=== PATIENT | female | born 1945 | race Caucasian/White ===

== ENCOUNTER 2018-01-03 20:49 | Observation (INO) | payer MEDICARE ==
[2018-01-03 20:50] VITALS: O2SAT 93
[2018-01-03] MEDS ORDERED: IODIXANOL 320 MG/ML 10 ML VIAL (for Rad CT) IVCONTRAST ONE (20:50)
[2018-01-03 20:52] VITALS: BP 217/124; PULSE 97; RESP 28; TEMP 98.9; O2SAT 79
[2018-01-03 21:04] VITALS: BP 215/98
[2018-01-03] MEDS ORDERED: SODIUM CHLORIDE 0.9% FLUSH 10 ML FLUSH IVF PRN ×2 (21:15→21:45)
[2018-01-03] MEDS ORDERED: ASPIRIN 81 MG CHEW TAB PO ONE (21:15)
[2018-01-03] MEDS: NITROGLYCERIN 0.4 MG SL 25 TABS/BTL SL SCH ×3 (21:18→21:37)
[2018-01-03 21:21] VITALS: RESP 25; O2SAT 98
[2018-01-03] MEDS ORDERED: ONDANSETRON HCL 4 MG/2 ML VIAL IV PUSH ONE (21:30)
[2018-01-03 21:40] LABS: AUTOMATED NEUTROPHIL # 7.9 TH/MM3 (1.8-7.7); BASOPHIL # 0.1 TH/MM3 (0-0.2); EOSINOPHIL # 0.2 TH/MM3 (0-0.4); EOSINOPHIL % 1.9 % (0.0-4.0); HEMATOCRIT 49.1 % (35.0-46.0); HEMOGLOBIN 16.5 GM/DL (11.6-15.3); LYMPH % 21.9 % (9.0-44.0); LYMPHOCYTE # 2.6 TH/MM3 (1.0-4.8); MEAN CELL VOLUME 88.8 FL (80.0-100.0); MEAN CORPUSCULAR HEMOGLOBIN 29.9 PG (27.0-34.0); MEAN CORPUSCULAR HGB CONC 33.7 % (32.0-36.0); MEAN PLATELET VOLUME 9.2 FL (7.0-11.0); MONO % 9.3 % (0.0-8.0); MONOCYTE # 1.1 TH/MM3 (0-0.9); NEUT % 65.9 % (16.0-70.0); PLATELET COUNT 295 TH/MM3 (150-450); RED BLOOD COUNT 5.53 MIL/MM3 (4.00-5.30); RED CELL DISTRIBUTION WIDTH 13.7 % (11.6-17.2)
[2018-01-03] MEDS ORDERED: NITROGLYCERIN 2% OINT 1 GM PACKET TOPICAL ONE (21:45)
--- NOTE | 2018-01-03 21:54 | RADRPT ---
EXAM DATE/TIME: 01/03/2018 21:27 [facility] COMPARISON: No previous studies available for comparison. INDICATIONS : Chest pain. MEDICAL HISTORY : None. SURGICAL HISTORY : Right upper lung lobectomy. ENCOUNTER: Initial ACUITY: 3 days PAIN SCORE: 4/10 LOCATION: chest FINDINGS: There are no prior studies for comparison. There is pleural thickening in the right apex. There is ev idence of previous right thoracic surgery with surgical clips in the right hemithorax. There is eithe r pleural thickening or parenchymal changes in the right lung base. There is some atelectasis in the left lung base. Left lung is otherwise clear. The heart size is within normal limits. The bony struct ures are grossly intact. CONCLUSION: 1. Evidence of previous surgery to the left upper lung with pleural thickening in the apex. 2. Either pleural thickening or parenchymal changes in the right lung base. 3. Left lower lung atelectasis. Asaf Mireles MD on January 03, 2018 at 21:51 Board Certified Radiologist. This report was verified electronically.
--- NOTE | 2018-01-03 21:57 | PD ---
HPI Chief Complaint: Respiratory Distress Time Seen by Provider: 20:58 Travel History International Travel<30 days: No Contact w/Intl Traveler<30days: No Traveled to known affect area: No History of Present Illness HPI 72-year-old female presents to the emergency department by private transportation in the care of family for evaluation of chest pain and shortness of breath. Patient states she recently arrived from [place] by plane and notes chest pain as well as shortness of breath. Patient has history of COPD with chronic recurrent shortness of breath. Patient uses supplemental oxygen as needed for dyspnea at rest and on exertion. Patient states she also notes some discomfort into her abdomen and denies any lower extremity pain or swelling. Patient has had no recent febrile illness and is currently taking no blood thinning agents. Patient denies any personal history or family history of clotting disorder or connective tissue disorder. Patient does have history of hypertension and dyslipidemia but denies diabetes and no recent tobacco use. Patient states 1 year ago she had an imaging study of the aorta that was found to be normal according to the patient. All of her providers are located in [place]. Patient denies any hemoptysis or productive cough. Patient does complain of nausea. Patient denies any known cardiac disease. PFSH Past Medical History Narrative Medical COPD, hypertension, dyslipidemia; right upper lobectomy, hysterectomy, cholecystectomy; remote tobacco use; nursing notes reviewed Social History Tobacco Use: No Allergies-Medications (Allergen,Severity, Reaction): Coded Allergies: Sulfa (Sulfonamide Antibiotics) (Verified Allergy, Unknown, 01/03/18) ipratropium (Verified Allergy, Unknown, 01/03/18) lisinopril (Verified Allergy, Unknown, 01/03/18) morphine (Verified Allergy, Unknown, 01/03/18) sulfamethoxazole (Verified Allergy, Unknown, 01/03/18) topiramate (Verified Allergy, Unknown, 01/03/18) trimethoprim (Verified Allergy, Unknown, 01/03/18) Reported Meds & Prescriptions Reported Meds & Active Scripts Active Review of Systems Except as stated in HPI: all other systems reviewed are Neg General / Constitutional: No: Fever, Chills HENT: No: Congestion Cardiovascular: Positive: Chest Pain or Discomfort (Discomfort 06/05) Respiratory: Positive: Shortness of Breath, No: Wheezing Gastrointestinal: Positive: Nausea, Abdominal Pain (Discomfort) Genitourinary: No: Flank Pain Musculoskeletal: No: Myalgias, Arthralgias, Cramping, Edema, Pain Skin: No Rash Neurologic: No: Weakness Psychiatric: No: Anxiety Hematologic/Lymphatic: No: Easy Bruising Physical Exam Narrative GENERAL: Well-developed well-nourished female in no apparent distress no respiratory distress; GCS 15 room air O2 saturation 82% patient placed on 4 L/ min nasal cannula with 99% O2 saturation; blood pressure elevated SKIN: Warm and dry. HEAD: Normocephalic. EYES: No scleral icterus. No injection or drainage. NECK: Supple, trachea midline. No JVD or lymphadenopathy. CARDIOVASCULAR: Regular rate and rhythm without murmurs, gallops, or rubs. Bilateral radial pulses 2+ to palpation, bilateral dorsalis pedis pulses 2+ to palpation. RESPIRATORY: Breath sounds equal bilaterally. No accessory muscle use. GASTROINTESTINAL: Abdomen soft, non-tender, nondistended. No palpable pulsatile mass. MUSCULOSKELETAL: No cyanosis, or edema. No pallor or coolness of the limbs, no edema erythema increased warmth of the lower extremities or upper extremities and no Homans sign or posterior calf cording. BACK: Nontender without obvious deformity. No CVA tenderness. Data Data Last Documented VS Vital Signs Date Time Temp Pulse Resp B/P (MAP) Pulse Ox O2 Delivery O2 Flow Rate FiO2 01/03/18 21:21 25 98 Nasal Cannula 3.00 01/03/18 20:55 85 01/03/18 20:52 98.9 Orders Orders Electrocardiogram (01/03/18 21:09) Basic Metabolic Panel (Bmp) (01/03/18 21:09) B-Type Natriuretic Peptide (01/03/18 21:09) Ckmb (Isoenzyme) Profile (01/03/18 21:09) Complete Blood Count With Diff (01/03/18 21:09) D-Dimer (01/03/18 21:09) Magnesium (Mg) (01/03/18 21:09) Prothrombin Time / Inr (Pt) (01/03/18 21:09) Act Partial Throm Time (Ptt) (01/03/18 21:09) Troponin I (01/03/18 21:09) Chest, Single Ap (01/03/18 21:09) Ecg Monitoring (01/03/18 21:09) Bilateral Bp Monitoring (01/03/18 21:09) Iv Access Insert/Monitor (01/03/18 21:09) Oximetry (01/03/18 21:09) Oxygen Administration (01/03/18 21:09) Aspirin Chew (Aspirin Chew) (01/03/18 21:15) Sodium Chloride 0.9% Flush (Ns Flush) (01/03/18 21:15) Nitroglycerin Sl (Nitrostat Sl) (01/03/18 21:15) Lactic Acid (01/03/18 21:09) Ondansetron Inj (Zofran Inj) (01/03/18 21:30) Us Leg Venous Doppler Bilat (01/03/18 ) Electrocardiogram (01/03/18 21:35) Bilateral Bp Monitoring (01/03/18 21:35) Sodium Chloride 0.9% Flush (Ns Flush) (01/03/18 21:45) Ct Pulmonary Angiogram (01/03/18 21:35) Ct Abd/Pel W Iv Contrast(Rout) (01/03/18 ) Nitroglycerin 2% Oint (Nitroglycerin 2% (01/03/18 21:45) CKMB (01/03/18 20:15) CKMB% (01/03/18 20:15) Iodixanol 320 Inj (Rad Ct) (Visipaque 32 (01/03/18 20:50) Sodium Chlorid 0.9% 500 Ml Inj (Ns 500 M (01/03/18 22:45) Albuterol Neb (Albuterol Neb) (01/03/18 22:45) Clonidine (Catapres) (01/03/18 23:30) Albuterol Neb (Albuterol Neb) (01/03/18 23:30) Ceftriaxone Inj (Rocephin Inj) (01/03/18 23:45) Methylprednisolone So Succ Inj (Solumedr (01/04/18 00:00) Admit Order (Ed Use Only) (01/03/18 ) Movement Assembler / Telemetry [id number].[id number] (01/03/18 23:54) Activity Bed Rest (01/03/18 23:54) Notify Dr: Other (01/03/18 23:54) Labs Laboratory Tests Test 01/03/18 20:15 2/7/18 21:20 White Blood Count 12.0 TH/MM3 Red Blood Count 5.53 MIL/MM3 Hemoglobin 16.5 GM/DL Hematocrit 49.1 % Mean Corpuscular Volume 88.8 FL Mean Corpuscular Hemoglobin 29.9 PG Mean Corpuscular Hemoglobin Concent 33.7 % Red Cell Distribution Width 13.7 % Platelet Count 295 TH/MM3 Mean Platelet Volume 9.2 FL Neutrophils (%) (Auto) 65.9 % Lymphocytes (%) (Auto) 21.9 % Monocytes (%) (Auto) 9.3 % Eosinophils (%) (Auto) 1.9 % Basophils (%) (Auto) 1.0 % Neutrophils # (Auto) 7.9 TH/MM3 Lymphocytes # (Auto) 2.6 TH/MM3 Monocytes # (Auto) 1.1 TH/MM3 Eosinophils # (Auto) 0.2 TH/MM3 Basophils # (Auto) 0.1 TH/MM3 CBC Comment DIFF FINAL Differential Comment Prothrombin Time 9.5 SEC Prothromb Time International Ratio 0.9 RATIO Activated Partial Thromboplast Time 27.5 SEC D-Dimer Quantitative (PE/DVT) 0.94 MG/L FEU Blood Urea Nitrogen 28 MG/DL Creatinine 1.60 MG/DL Random Glucose 94 MG/DL Calcium Level 10.6 MG/DL Magnesium Level 2.2 MG/DL Sodium Level 141 MEQ/L Potassium Level 4.0 MEQ/L Chloride Level 106 MEQ/L Carbon Dioxide Level 25.7 MEQ/L Anion Gap 9 MEQ/L Estimat Glomerular Filtration Rate 32 ML/MIN Total Creatine Kinase 173 U/L Creatine Kinase MB 1.8 NG/ML Troponin I LESS THAN 0.02 NG/ML B-Type Natriuretic Peptide 24 PG/ML Lactic Acid Level 1.7 mmol/L [facility] Medical Decision Making Medical Screen Exam Complete: Yes Emergency Medical Condition: Yes Medical Record Reviewed: Yes Interpretation(s) EKG: Normal sinus rhythm rate [address] elevation or injury pattern change noted artifact is present Chest x-ray: No mediastinal widening elevation of right hemidiaphragm and scarring consistent with right upper lobectomy no infiltrate Differential Diagnosis Chest pain, hypoxemia, aortic dissection, aortic aneurysm, PE, ACS, IL, exacerbation COPD, DVT Narrative Course Patient placed on monitor technician with continuous pulse oximetry and supplemental oxygen aspirin administered 162 mg and sublingual nitroglycerin bilateral blood pressure symmetric EKG sinus rhythm with no acute ST elevation injury pattern change noted At 9:50 PM patient complains of cramping sensation in the left calf reports chest pain has diminished significantly after nitroglycerin and O2 saturations 99% on supplemental oxygen nausea denies shortness of breath this time stat CT pulmonary angiogram ordered along with CT abdomen and pelvis to evaluate for PE as well as further evaluation of thoracic and abdominal aorta Physician Communication Physician Communication iscussed with Dr Sims Diagnosis Primary Impression: Chest pain Additional Impressions: Hypoxemia COPD (chronic obstructive pulmonary disease) Admitting Information Admitting Physician Requests: Observation Christina Danielson MD Jan 03, 2018 21:57
[2018-01-03 22:00] LABS: BICARBONATE 25.7 MEQ/L (21.0-32.0); BLOOD UREA NITROGEN 28 MG/DL (7-18); CALCIUM 10.6 MG/DL (8.5-10.1); CHLORIDE 106 MEQ/L (98-107); GLOMERULAR FILTRATION RATE 32 ML/MIN (>89); GLUCOSE,RANDOM 94 MG/DL (74-106); MAGNESIUM 2.2 MG/DL (1.5-2.5); SODIUM (NA) 141 MEQ/L (136-145)
[2018-01-03 22:01] LABS: TROPONIN I LESS THAN 0.02 NG/ML (0.02-0.05)
--- NOTE | 2018-01-03 22:36 | RADRPT ---
EXAM DATE/TIME: 01/03/2018 22:12 [facility] COMPARISON: No previous studies available for comparison. INDICATIONS : Shortness of breath. IV CONTRAST: 50 cc Visipaque (iodixanol) IV ; Cumulative dose for multiple exams. RADIATION DOSE: 26.45 CTDIvol (mGy) ; Combined studies MEDICAL HISTORY : Chronic obstructive pulmonary disease. Hypertension. SURGICAL HISTORY : Cholecystectomy. Hysterectomy.right upper lobectomy ENCOUNTER: Initial ACUITY: 1 day PAIN SCALE: 0/10 LOCATION: chest TECHNIQUE: Volumetric scanning of the chest was performed using a pulmonary embolism protocol MIP images were re constructed. Using automated exposure control and adjustment of the mA and/or kV according to patien t size, radiation dose was kept as low as reasonably achievable to obtain optimal diagnostic quality images. DICOM format image data is available electronically for review and comparison. Follow-up recommendations for detected pulmonary nodules are based at a minimum on nodule size and pa tient risk factors according to Fleischner Society Guidelines. FINDINGS: PULMONARY ARTERIES: No filling defects are seen in the pulmonary arteries through the segmental level. LUNGS: There appears to be evidence of a previous right upper lobectomy. Postsurgical changes with pleural t hickening are noted in the right apex. There is severe bullous emphysema throughout both lung [place]. No acute pulmonary infiltrates. There is some elevation of the right hemidiaphragm. PLEURAE: There is no pleural thickening or pleural effusion. MEDIASTINUM: There is good visualization of the great vessels of the middle mediastinum. No evidence of mediastin al or hilar adenopathy/mass. MUSCULOSKELETAL: Within normal limits for patient age. Bony degenerative changes. MISCELLANEOUS: The visualized upper abdominal organs demonstrate no acute abnormality. Multiple splenic granulomas. CONCLUSION: 1. No evidence of pulmonary embolism. 2. Severe bilateral bullous emphysema. 3. Status post prior right upper lobectomy with postsurgical changes and pleural thickening. 4. No acute pulmonary infiltrates. Asaf Mireles MD on January 03, 2018 at 22:31 Board Certified Radiologist. This report was verified electronically.
--- NOTE | 2018-01-03 22:39 | RADRPT ---
EXAM DATE/TIME: 01/03/2018 22:12 [facility] COMPARISON: No previous studies available for comparison. INDICATIONS : Short of breath. IV CONTRAST: 50 cc Visipaque (iodixanol) IV ; Cumulative dose for multiple exams. ORAL CONTRAST: No oral contrast ingested. RADIATION DOSE: CTDIvol (mGy) ; Combined studies MEDICAL HISTORY : Chronic obstructive pulmonary disease. Hypertension. SURGICAL HISTORY : Cholecystectomy. Hysterectomy.right upper lobectomy ENCOUNTER: Initial ACUITY: 1 day PAIN SCALE: 0/10 LOCATION: abdomen TECHNIQUE: Volumetric scanning of the abdomen and pelvis was performed. Using automated exposure control and ad justment of the mA and/or kV according to patient size, radiation dose was kept as low as reasonably achievable to obtain optimal diagnostic quality images. DICOM format image data is available electro nically for review and comparison. FINDINGS: LOWER LUNGS: Severe bullous emphysema in the lower lung [place]. LIVER: Homogeneous density without lesion. There is no dilation of the biliary tree. No calcified gallston es. SPLEEN: Normal size without lesion. Multiple splenic granulomas. PANCREAS: Within normal limits. KIDNEYS: Normal in size and shape. There is no mass, stone or hydronephrosis. There are 2 benign left renal c ysts. The largest measures 3.8 cm along the lower pole. ADRENAL GLANDS: Within normal limits. VASCULAR: There is no aortic aneurysm. BOWEL/MESENTERY: The stomach, small bowel, and colon demonstrate no acute abnormality. There is no free intraperitone al air or fluid. No inflammatory changes. ABDOMINAL WALL: Within normal limits. RETROPERITONEUM: There is no lymphadenopathy. BLADDER: No wall thickening or mass. REPRODUCTIVE: Within normal limits. INGUINAL: There is no lymphadenopathy or hernia. MUSCULOSKELETAL: Within normal limits for patient age. Primary bony degenerative changes. CONCLUSION: 1. Benign-appearing left renal cysts. 2. Multiple splenic granulomas. 3. No acute pathology. Asaf Mireles MD on January 03, 2018 at 22:34 Board Certified Radiologist. This report was verified electronically.
[2018-01-03] MEDS ORDERED: SODIUM CHLORID 0.9% 500 ML INJ 500 ML IV ONE (22:45)
[2018-01-03] MEDS ORDERED: RESP: ALBUTEROL 2.5 MG/3 ML NEB (SCH) NEB ONE ×2 (22:45→23:30)
[2018-01-03 22:52] LABS: INTERNATIONAL NORMALIZED RATIO 0.9 RATIO; PROTHROMBIN TIME - PATIENT 9.5 SEC (9.8-11.6)
--- NOTE | 2018-01-03 23:07 | RADRPT ---
EXAM DATE/TIME: 01/03/2018 22:22 [facility] COMPARISON: No previous studies available for comparison. INDICATIONS : Shortness of breath. MEDICAL HISTORY : Chronic obstructive pulmonary disease. Hypertension. Dyslipidemia. SURGICAL HISTORY : Hysterectomy.Cholecystectomy. Right upper lobectomy. ENCOUNTER: Initial ACUITY: 1 day PAIN SCORE: 0/10 LOCATION: Bilateral legs. TECHNIQUE: Venous ultrasound of the left and right leg was performed from the inguinal ligament to the proximal calf. Real-time, color Doppler and spectral tracing, compression and augmentation techniques were us ed. FINDINGS: RIGHT LEG: There is normal compressibility of the deep venous system from the inguinal region to the proximal ca lf. No echogenic clot is seen in the lumen of the common femoral, femoral, popliteal, and posterior tibial veins. There is a normal response of the venous system to proximal and distal augmentation an d respiration. LEFT LEG: There is normal compressibility of the deep venous system from the inguinal region to the proximal ca lf. No echogenic clot is seen in the lumen of the common femoral, femoral, popliteal, and posterior tibial veins. There is a normal response of the venous system to proximal and distal augmentation an d respiration. CONCLUSION: No DVT is identified within either lower extremity. Reinaldo Reece MD on January 03, 2018 at 23:05 Board Certified Radiologist. This report was verified electronically.
[2018-01-03 23:20] LABS: D-DIMER 0.94 MG/L FEU (0.00-0.50)
[2018-01-03] MEDS ORDERED: cloNIDine HCL 0.1 MG TAB PO ONE (23:30)
[2018-01-03] MEDS ORDERED: cefTRIAXone INJ 1,000 MG in SODIUM CHLORIDE 0.9% INJ 100 ML IV ONE (23:45)
[2018-01-04] VITALS (10 sets, daily range): BP systolic 123–182; BP diastolic 56–84; PULSE 82–112; RESP 18–20; TEMP 97.1–98.3; O2SAT 93–98
[2018-01-04] MEDS ORDERED: methylPREDNISolone SOD SUCC 125 MG/2 ML VIAL IV PUSH ONE
[2018-01-04] MEDS ORDERED: ONDANSETRON HCL 4 MG/2 ML VIAL IVP PRN (02:30)
[2018-01-04] MEDS ORDERED: cloNIDine HCL 0.1 MG TAB PO PRN (02:30)
[2018-01-04] MEDS ORDERED: SODIUM CHLORIDE 0.9% FLUSH 10 ML FLUSH IV FLUSH PRN (02:30)
[2018-01-04] MEDS ORDERED: RESP: ALBUTEROL 2.5 MG/3 ML NEB (PRN) NEB (02:30)
[2018-01-04] MEDS: RESP: ALBUTEROL 2.5 MG/3 ML NEB (SCH) NEB ×4 (03:05→20:05)
[2018-01-04 04:27] LABS: TROPONIN I LESS THAN 0.02 NG/ML (0.02-0.05)
[2018-01-04] MEDS: methylPREDNISolone SOD SUCC 40 MG/1 ML VIAL IV PUSH SCH ×2 (05:10→11:50)
[2018-01-04] MEDS ORDERED: TRAZ50TA12 PO (05:32)
[2018-01-04] MEDS ORDERED: EXCETAB31 (05:32)
[2018-01-04] MEDS ORDERED: SPIRCAP INH (05:32)
[2018-01-04] MEDS ORDERED: ASPI-516 CHEW (05:32)
[2018-01-04] MEDS ORDERED: GABA600T PO (05:32)
[2018-01-04] MEDS ORDERED: DILT-48 PO (05:32)
[2018-01-04] MEDS ORDERED: REST0.05 EACH EYE (05:32)
[2018-01-04] MEDS ORDERED: LOSA100T PO (05:32)
[2018-01-04] MEDS: ACETAMINOPHEN 325 MG TAB PO PRN ×2 (05:35→19:28)
--- NOTE | 2018-01-04 05:36 | HHI.HP ---
[facility] Non-Staff Admission Diagnosis chest pain; htn; exacerbation copd Diagnoses: Travel History International Travel<30 Days: No Contact w/Intl Traveler <30 Da: No Traveled to Known Affected Are: No History of Present Illness 72-year-old female with a past medical history significant for COPD, hypertension, migraines and chronic back pain presents to the emergency department for evaluation of chest pain. The patient reports that she felt pressure like an elephant was sitting on her chest and abdomen. The pain was nonradiating. She endorses associated nausea but denies emesis. She says she has source of shortness of breath which is at her baseline and a chronic cough. Patient denies fever/chills. Denies any episodes of diaphoresis. Review of Systems Except as stated in HPI: all other systems reviewed are Neg Past Family Social History Past Medical History COPD (uses 3-4 L nasal cannula with activity) Hypertension Migraines Chronic back pain Past Surgical History Partial hysterectomy Right upper lobectomy for benign mass Tonsillectomy Appendectomy Allergies: Coded Allergies: Sulfa (Sulfonamide Antibiotics) (Verified Allergy, Unknown, 01/03/18) ipratropium (Verified Allergy, Unknown, 01/03/18) lisinopril (Verified Allergy, Unknown, 01/03/18) morphine (Verified Allergy, Unknown, 01/03/18) sulfamethoxazole (Verified Allergy, Unknown, 01/03/18) topiramate (Verified Allergy, Unknown, 01/03/18) trimethoprim (Verified Allergy, Unknown, 01/03/18) Family History Negative for CAD/DM Social History Quit tobacco in 1989. Endorses occasional alcohol. Denies illicit drugs. Physical Exam Vital Signs Vital Signs Date Time Temp Pulse Resp B/P (MAP) Pulse Ox O2 Delivery O2 Flow Rate FiO2 01/04/18 04:34 98.3 106 20 123/56 (78) 97 01/04/18 03:06 98 Nasal Cannula 2.00 01/04/18 02:21 98.0 97 20 163/72 (102) 93 01/03/18 21:21 25 98 Nasal Cannula 3.00 01/03/18 21:21 98 Nasal Cannula 3.00 01/03/18 21:04 215/98 (137) 01/03/18 20:55 85 28 98 Nasal Cannula 3.00 01/03/18 20:52 98.9 97 28 217/124 (155) 79 01/03/18 20:50 93 3.00 01/03/18 20:50 93 Nasal Cannula 3.00 Physical Exam GENERAL: female, lying in bed sleeping SKIN: No rashes, ecchymoses or lesions. Cool and dry. HEAD: Atraumatic. Normocephalic. No temporal or scalp tenderness. EYES: Pupils equal round and reactive. Extraocular motions intact. No scleral icterus. No injection or drainage. ENT: Nose without bleeding, purulent drainage or septal hematoma. Throat without erythema, tonsillar hypertrophy or exudate. Uvula midline. Airway patent. NECK: Trachea midline. No JVD or lymphadenopathy. Supple, nontender, no meningeal signs. CARDIOVASCULAR: Regular rate and rhythm without murmurs, gallops, or rubs. RESPIRATORY: Clear to auscultation. Breath sounds equal bilaterally. No wheezes , rales, or rhonchi. GASTROINTESTINAL: Abdomen soft, non-tender, nondistended. No hepato-splenomegaly , or palpable masses. No guarding. MUSCULOSKELETAL: Extremities without clubbing, cyanosis, or edema. No joint tenderness, effusion, or edema noted. No calf tenderness. NEUROLOGICAL: Awake and alert. Cranial nerves II through XII intact. Motor and sensory grossly within normal limits. Normal speech. Laboratory Laboratory Tests Test 01/03/18 20:15 01/03/18 21:20 01/04/18 03:18 White Blood Count 12.0 Red Blood Count 5.53 Hemoglobin 16.5 Hematocrit 49.1 Mean Corpuscular Volume 88.8 Mean Corpuscular Hemoglobin 29.9 Mean Corpuscular Hemoglobin Concent 33.7 Red Cell Distribution Width 13.7 Platelet Count 295 Mean Platelet Volume 9.2 Neutrophils (%) (Auto) 65.9 Lymphocytes (%) (Auto) 21.9 Monocytes (%) (Auto) 9.3 Eosinophils (%) (Auto) 1.9 Basophils (%) (Auto) 1.0 Neutrophils # (Auto) 7.9 Lymphocytes # (Auto) 2.6 Monocytes # (Auto) 1.1 Eosinophils # (Auto) 0.2 Basophils # (Auto) 0.1 CBC Comment DIFF FINAL Differential Comment Prothrombin Time 9.5 Prothromb Time International Ratio 0.9 Activated Partial Thromboplast Time 27.5 D-Dimer Quantitative (PE/DVT) 0.94 Blood Urea Nitrogen 28 Creatinine 1.60 Random Glucose 94 Calcium Level 10.6 Magnesium Level 2.2 Sodium Level 141 Potassium Level 4.0 Chloride Level 106 Carbon Dioxide Level 25.7 Anion Gap 9 Estimat Glomerular Filtration Rate 32 Total Creatine Kinase 173 116 Creatine Kinase MB 1.8 Troponin I LESS THAN 0.02 LESS THAN 0.02 B-Type Natriuretic Peptide 24 Lactic Acid Level 1.7 Result Diagram: 01/03/18201401/03/182014 Caprini VTE Risk Assessment Caprini VTE Risk Assessment: Mod/High Risk (score >= 2) Caprini Risk Assessment Model Point Value = 1 Point Value = 2 Point Value = 3 Point Value = 5 Age 41-60 Minor surgery BMI > 25 kg/m2 Swollen legs Varicose veins or History of unexplained or recurrent spontaneous Oral contraceptives or hormone replacement Sepsis (< 1 month) Serious lung disease, including pneumonia (< 1 month) Abnormal pulmonary function Acute myocardial infarction Congestive heart failure (< 1 month) History of inflammatory bowel disease Medical patient at bed rest Age 61-74 Arthroscopic surgery Major open surgery (> 45 min) Laparoscopic surgery (> 45 min) Malignancy Confined to bed (> 72 hours) Immobilizing plaster cast Central venous access Age >= 75 History of VTE Family history of VTE Factor V Leiden Prothrombin [id number] Lupus anticoagulant Anticardiolipin antibodies Elevated serum homocysteine Heparin-induced thrombocytopenia Other congenital or acquired thrombophilia Stroke (< 1 month) Elective arthroplasty Hip, pelvis, or leg fracture Acute spinal cord injury (< 1 month) Prophylaxis Regimen Total Risk Factor Score Risk Level Prophylaxis Regimen 0-1 Low Early ambulation 2 Moderate Order ONE of the following: *Sequential Compression Device (SCD) *Heparin 5000 units SQ BID 3-4 Higher Order ONE of the following medications: *Heparin 5000 units SQ TID *Enoxaparin/Lovenox 40 mg SQ daily (WT < 150 kg, CrCl > 30 mL/min) *Enoxaparin/Lovenox 30 mg SQ daily (WT < 150 kg, CrCl > 10-29 mL/min) *Enoxaparin/Lovenox 30 mg SQ BID (WT < 150 kg, CrCl > 30 mL/min) AND/OR *Sequential Compression Device (SCD) 5 or more Highest Order ONE of the following medications: *Heparin 5000 units SQ TID (Preferred with Epidurals) *Enoxaparin/Lovenox 40 mg SQ daily (WT < 150 kg, CrCl > 30 mL/min) *Enoxaparin/Lovenox 30 mg SQ daily (WT < 150 kg, CrCl > 10-29 mL/min) *Enoxaparin/Lovenox 30 mg SQ BID (WT < 150 kg, CrCl > 30 mL/min) AND *Sequential Compression Device (SCD) Assessment and Plan Assessment and Plan Assessment/plan: 1. Chest pain/abdominal pain/shortness of breath Resolved Initial troponin negative EKG showed normal sinus rhythm, no ST segment elevations or depressions, personally reviewed ACS rule out pending; serial troponin/EKGs Aspirin CT of the abdomen/pelvis negative for acute process CTA negative for PE 2. COPD Albuterol nebulizers as needed Supplemental oxygen as needed Continue home inhalers IV steroids 3. Hypertension Continue home medications once medication reconciliation complete 4. Migraines/chronic back pain Continue home gabapentin FEN Heart healthy diet Electrolytes: Replete when necessary Heparin Minal Sims MD Jan 04, 2018 05:36
[2018-01-04] MEDS: HEPARIN SODIUM - SQ 10,000 UNITS/ML VIAL SQ SCH ×3 (06:12→23:40)
[2018-01-04] MEDS: SODIUM CHLORIDE 0.9% FLUSH 10 ML FLUSH IV FLUSH SCH ×2 (09:00→23:40)
[2018-01-04 12:00] LABS: TROPONIN I LESS THAN 0.02 NG/ML (0.02-0.05)
--- NOTE | 2018-01-04 12:53 | HHI.PR ---
Subjective Remarks Follow-up for chest pain Patient said that chest pain has resolved. She described chest pain as an elephant sitting on her chest. She stated that it was abrupt and she was not really doing anything. Patient stated that she did just get back from a flight in which she did not eat dinner and only had popcorn. Patient stated that chest pain was so severe that she went to emergency department. She also associated chest pain with GI symptoms and nausea. Patient stated that nothing made it better but when I asked her nitroglycerin made it better she stated that she thinks so. Patient had Pepsi this morning. Objective Vitals Vital Signs Date Time Temp Pulse Resp B/P (MAP) Pulse Ox O2 Delivery O2 Flow Rate FiO2 01/04/18 12:00 97.2 102 20 142/65 (90) 95 01/04/18 08:00 88 01/04/18 08:00 97.1 104 18 138/70 (92) 95 01/04/18 06:40 20 01/04/18 04:34 98.3 106 20 123/56 (78) 97 01/04/18 03:06 98 Nasal Cannula 2.00 01/04/18 02:21 98.0 97 20 163/72 (102) 93 01/03/18 21:21 25 98 Nasal Cannula 3.00 01/03/18 21:21 98 Nasal Cannula 3.00 01/03/18 21:04 215/98 (137) 01/03/18 20:55 85 28 98 Nasal Cannula 3.00 01/03/18 20:52 98.9 97 28 217/124 (155) 79 01/03/18 20:50 93 3.00 01/03/18 20:50 93 Nasal Cannula 3.00 I/O 01/03/18 01/03/18 01/03/18 01/04/18 01/04/18 01/04/18 07:00 15:00 23:00 07:00 15:00 23:00 Intake Total 240 ml Balance 240 ml Intake Oral 240 ml Result Diagram: 01/03/18201401/03/182014 Objective Remarks GENERAL: in NAD SKIN: Warm and dry. HEAD: Normocephalic. EYES: No scleral icterus. No injection or drainage. NECK: Supple, trachea midline. No JVD or lymphadenopathy. CARDIOVASCULAR: Regular rate and rhythm without murmurs, gallops, or rubs. RESPIRATORY: Breath sounds equal bilaterally. No accessory muscle use. GASTROINTESTINAL: Abdomen soft, non-tender, nondistended. MUSCULOSKELETAL: No cyanosis, or edema. BACK: Nontender without obvious deformity. No CVA tenderness. Medications and IVs Current Medications Aspirin (Aspirin Chew) 162 mg ONCE ONCE PO Last administered on 01/03/18 21:17 ; Start 01/03/18 at 21:15; Stop 01/03/18 at 21:16; Status DC Sodium Chloride (NS Flush) 2 ml UNSCH PRN IVF FLUSH AFTER USING IV ACCESS; Start 01/03/18 at 21:15 Nitroglycerin (Nitrostat Sl) 0.4 mg Q5M SL Last administered on 01/03/18at 21:37 ; Start 01/03/18 at 21:15; Stop 01/03/18 at 21:26; Status DC Ondansetron HCl (Zofran Inj) 4 mg ONCE ONCE IV PUSH Last administered on at 21:25; Start 01/03/18 at 21:30; Stop 01/03/18 at 21:31; Status DC Sodium Chloride (NS Flush) 2 ml UNSCH PRN IVF FLUSH AFTER USING IV ACCESS; Start 01/03/18 at 21:45 Nitroglycerin (Nitroglycerin 2% Oint) 1 inch ONCE ONCE TOPICAL Last administered on 01/03/18at 21:57; Start 01/03/18 at 21:45; Stop 01/03/18 at 21:46; Status DC Iodixanol (VISIPAQUE 320 INJ (Rad CT)) 50 ml STK-MED ONCE IVCONTRAST Last administered on 01/03/18at 22:36; Start 01/03/18 at 20:50; Stop 01/03/18 at 22:35; Status DC Sodium Chloride 500 ml @ 500 mls/hr BOLUS ONCE IV Last administered on at 22:51; Start 01/03/18 at 22:45; Stop 01/03/18 at 23:44; Status DC Albuterol Sulfate (Albuterol Neb) 2.5 mg ONCE ONCE NEB Last administered on 01/03/18at 22:48; Start 01/03/18 at 22:45; Stop 01/03/18 at 22:46; Status DC Clonidine (Catapres) 0.1 mg ONCE ONCE PO Last administered on 01/03/18at 23:46; Start 01/03/18 at 23:30; Stop 01/03/18 at 23:31; Status DC Albuterol Sulfate (Albuterol Neb) 2.5 mg ONCE ONCE NEB Last administered on 01/03/18at 23:47; Start 01/03/18 at 23:30; Stop 01/03/18 at 23:31; Status DC Ceftriaxone Sodium 1000 mg/ Sodium Chloride 100 ml @ 200 mls/hr ONCE ONCE IV Last administered on 01/04/18at 00:10; Start 01/03/18 at 23:45; Stop 01/04/18 at 00: 14; Status DC Methylprednisolone Sodium Succinate (SoluMEDROL INJ) 125 mg ONCE ONCE IV PUSH Last administered on 01/04/18at 00:10; Start 01/04/18 at 00:00; Stop 01/04/18 at 00: 01; Status DC Albuterol Sulfate (Albuterol Neb) 2.5 mg Q2HR NEB PRN NEB SOB/WHEEZING; Start 01/04/18 at 02:30 Albuterol Sulfate (Albuterol Neb) 2.5 mg Q6HR NEB NEB Last administered on 01/04at 07:21; Start 01/04/18 at 04:00 Sodium Chloride (NS Flush) 2 ml UNSCH PRN IV FLUSH FLUSH AFTER USING IV ACCESS ; Start 01/04/18 at 02:30 Sodium Chloride (NS Flush) 2 ml BID IV FLUSH Last administered on 01/04/18at 09: 00; Start 01/04/18 at 09:00 Acetaminophen (Tylenol) 650 mg Q4H PRN PO TEMP > 100.4/hoyt Last administered on 01/04/18at 05:35; Start 01/04/18 at 02:30 Ondansetron HCl (Zofran Inj) 4 mg Q6H PRN IVP NAUSEA OR VOMITING; Start at 02:30 Heparin Sodium (Porcine) (Heparin Inj) 5,000 units Q8H SQ Last administered on 01/04/18at 06:12; Start 01/04/18 at 06:00 Clonidine (Catapres) 0.1 mg Q6H PRN PO SEE LABEL COMMENTS; Start 01/04/18 at 02: 30 Methylprednisolone Sodium Succinate (SoluMEDROL INJ) 40 mg Q6HR IV PUSH Last administered on 01/04/18at 05:10; Start 01/04/18 at 06:00 A/P Assessment and Plan This is a 72-year-old female with chest pain 1. Chest pain/abdominal pain/shortness of breath -Asymptomatic at the moment. Troponins negative. No events overnight. Due to description of chest pain will need to rule out ACS with nuclear stress test. Patient had Pepsi this morning still unable to do this today she is scheduled to have this done tomorrow morning. -He is on aspirin. Nitroglycerin as needed. -She also had a CT of the abdomen/pelvis negative for acute process and CTA negative for PE 2. COPD, asymptomatic -Albuterol nebulizers as needed -Supplemental oxygen as needed -Continue home inhalers. Unsure why patient is on IV Solu-Medrol since she is asymptomatic and lungs are clear. On her clinical exam on admission lungs were also clear. Will DC Solu-Medrol since no indication. 3. Hypertension -We will resume home medication. 4. Migraines/chronic back pain -Resume home medication. DVT prophylaxis -Heparin Discharge Planning Patient scheduled for nuclear stress test tomorrow since she had caffeine this morning. Nilsa Phillips MD Jan 04, 2018 12:53
[2018-01-04] MEDS ORDERED: CYCLOSPORINE EACH EYE SCH (13:00)
[2018-01-04] MEDS: TIOTROPIUM BROMIDE 18 MCG INH INH SCH (13:00)
[2018-01-04] MEDS: GABAPENTIN 300 MG CAP PO SCH ×2 (14:43→23:41)
[2018-01-04] MEDS: LOSARTAN 50 MG TAB PO SCH (14:43)
--- NOTE | 2018-01-04 20:16 | EKG ---
Date Performed: 01/03/2018 Time Performed: 20:56:42 PTAGE: 72 years EKG: Sinus rhythm NORMAL ECG NO PREVIOUS TRACING DOCTOR: Bernabe Dobbins Interpretating Date/Time 01/04/2018 20:14:02
--- NOTE | 2018-01-04 20:16 | EKG ---
Date Performed: 01/04/2018 Time Performed: 03:37:49 PTAGE: 72 years EKG: Sinus rhythm NORMAL ECG Since the prior tracing, there has been no significant change PREVIOUS TRACING : 01/03/2018 20.56 DOCTOR: Bernabe Dobbins Interpretating Date/Time 01/04/2018 20:14:12
[2018-01-04] MEDS ORDERED: DILTIAZEM-CD 240 MG CAP ER PO SCH (21:00)
[2018-01-05] MEDS: RESP: ALBUTEROL 2.5 MG/3 ML NEB (SCH) NEB ×3 (02:48→17:00)
[2018-01-05 04:47] VITALS: BP 136/62; PULSE 101; RESP 16; TEMP 98.4; O2SAT 95
[2018-01-05] MEDS: LOSARTAN 50 MG TAB PO SCH (07:18)
[2018-01-05] MEDS: SODIUM CHLORIDE 0.9% FLUSH 10 ML FLUSH IV FLUSH SCH (07:19)
[2018-01-05] MEDS: TIOTROPIUM BROMIDE 18 MCG INH INH SCH (07:19)
[2018-01-05] MEDS: GABAPENTIN 300 MG CAP PO SCH (07:19)
[2018-01-05] MEDS: HEPARIN SODIUM - SQ 10,000 UNITS/ML VIAL SQ SCH ×2 (07:19→14:00)
[2018-01-05] MEDS: ACETAMINOPHEN 325 MG TAB PO PRN (07:20)
[2018-01-05 08:00] VITALS: PULSE 72
[2018-01-05 08:24] VITALS: BP 170/90; PULSE 90; RESP 20; TEMP 97.9; O2SAT 96
[2018-01-05] MEDS ORDERED: LORazepam 2 MG/ML VIAL IV PUSH ONE ×2 (09:00)
[2018-01-05] MEDS ORDERED: REGADENOSON INJ 0.4 MG/5 ML SYR ONE (09:05)
--- NOTE | 2018-01-05 09:19 | HHI.PR ---
Subjective Remarks Follow up for chest pain. Chest pain continues to remain resolved. She states her breathing is at baseline. Denies any significant shortness of breath. She is requesting "big dose" of sedation to be given prior to second part of the stress test today. She wants to go home after stress test. She has no other medical complaints at this time. Objective Vitals Vital Signs Date Time Temp Pulse Resp B/P (MAP) Pulse Ox O2 Delivery O2 Flow Rate FiO2 01/05/18 08:24 97.9 90 20 170/90 (116) 96 01/05/18 04:47 98.4 101 16 136/62 (86) 95 01/04/18 23:57 98.0 82 18 160/74 (102) 98 01/04/18 20:24 98.1 112 18 182/84 (116) 95 01/04/18 20:06 97 Nasal Cannula 2.00 01/04/18 16:38 98.2 102 18 173/76 (108) 97 01/04/18 13:55 97.9 105 18 146/70 (95) 94 01/04/18 12:00 97.2 102 20 142/65 (90) 95 I/O 01/04/18 01/04/18 01/04/18 01/05/18 01/05/18 01/05/18 07:00 15:00 23:00 07:00 15:00 23:00 Intake Total 240 ml Balance 240 ml Intake Oral 240 ml Result Diagram: 01/03/18201401/03/182014 Imaging Last Impressions CT Angiography 01/03/182134 Signed Impressions: Service Date/Time: Wednesday, January 03, 2018 22:12 - CONCLUSION: 1. No evidence of pulmonary embolism. 2. Severe bilateral bullous emphysema. 3. Status post prior right upper lobectomy with postsurgical changes and pleural thickening. 4. No acute pulmonary infiltrates. Asaf Mireles MD Chest X-Ray 01/03/182108 Signed Impressions: Service Date/Time: Wednesday, January 03, 2018 21:27 - CONCLUSION: 1. Evidence of previous surgery to the left upper lung with pleural thickening in the apex. 2. Either pleural thickening or parenchymal changes in the right lung base. 3. Left lower lung atelectasis. Asaf Mireles MD Lower Extremity Ultrasound 01/03/18 0000 Signed Impressions: Service Date/Time: Wednesday, January 03, 2018 22:22 - CONCLUSION: No DVT is identified within either lower extremity. Reinaldo Reece MD Abdomen/Pelvis CT 01/03/18 0000 Signed Impressions: Service Date/Time: Wednesday, January 03, 2018 22:12 - CONCLUSION: 1. Benign-appearing left renal cysts. 2. Multiple splenic granulomas. 3. No acute pathology. Asaf Mireles MD Objective Remarks GENERAL: Well-nourished, well-developed female patient in NAD. SKIN: Warm and dry. No rash. HEENT: Normocephalic. Atraumatic. Pupils equal and round. Mucous membranes pink and moist. CARDIOVASCULAR: Regular rate and rhythm. S1, S2 noted. No murmur appreciated. RESPIRATORY: No accessory muscle use. Clear to auscultation. Breath sounds equal bilaterally. GASTROINTESTINAL: Abdomen soft, non-tender, nondistended. Normoactive bowel sounds x4. MUSCULOSKELETAL: No obvious deformities. Extremities without clubbing, cyanosis , or edema. NEUROLOGICAL: Awake and alert. No obvious cranial nerve deficits. Motor grossly within normal limits. Normal speech. PSYCHIATRIC: Slightly anxious; insight and judgment normal. Medications and IVs Current Medications Medications (Trade) Dose Ordered Sig/Carlo Route Start Time Stop Time Status Last Admin (Albuterol Neb) 2.5 mg Q2HR NEB PRN NEB 01/04/18 02:30 (Albuterol Neb) 2.5 mg Q6HR NEB NEB 01/04/18 04:00 01/05/18 02:48 (NS Flush) 2 ml UNSCH PRN IV FLUSH 01/04/18 02:30 (NS Flush) 2 ml BID IV FLUSH 01/04/18 09:00 01/05/18 07:19 (Tylenol) 650 mg Q4H PRN PO 01/04/18 02:30 01/05/18 07:20 (Zofran Inj) 4 mg Q6H PRN IVP 01/04/18 02:30 (Heparin Inj) 5,000 units Q8H SQ 01/04/18 06:00 01/05/18 07:19 (Catapres) 0.1 mg Q6H PRN PO 01/04/18 02:30 (Cardizem Cd) 240 mg HS PO 01/04/18 21:00 01/04/18 23:41 (Neurontin) 600 mg BID PO 01/04/18 13:00 01/05/18 07:19 (Cozaar) 100 mg DAILY PO 01/04/18 13:00 01/05/18 07:18 (Spiriva Inh) 18 mcg DAILY INH 01/04/18 13:00 01/05/18 07:19 Patient Own Medication PT OWN MED: Cyclosporine O... BID EACH EYE 01/04/18 13:00 Future Hold A/P Assessment and Plan 72-year-old female with history of COPD, hypertension, migraines and chronic back pain, presents with acute onset chest pain Chest pain/abdominal pain/shortness of breath: Asymptomatic at the moment. -CT abdomen/pelvis images reviewed, negative for acute process. -CTA reviewed, negative for PE. -ACS ruled out with negative serial cardiac enzymes x3 and EKG with no acute ischemic changes -Continue on aspirin, nitro prn -Patient requesting IV ativan prior to stress test secondary to claustrophobia -Nuclear stress test pending, likely discharge today if unremarkable COPD: chronic, appears at baseline. No wheezing on exam. -Albuterol nebulizers as needed -Supplemental oxygen as needed -Continue home Spiriva. Hypertension: elevated at times however patient admits to feeling anxious in the hospital -resume home medications including losartan, cardizem, and f/up as outpatient with PCP. Migraines/chronic back pain -Resume home meds including gabapentin and trazodone DVT prophylaxis-Heparin sq Discharge Planning 1000hrs: Likely discharge today if nuclear stress test and echo unremarkable. 1400hrs: Nuclear stress test unremarkable. Awaiting echo. 1845hrs: Echocardiogram resulted, EF 60-65%. Patient stable for discharge. Discussed with Maricruz RN and Marivel RN. Discharge patient to home Condition on discharge: Stable Heart Healthy Diet as tolerated Ad Caitlin activity Rx written: none Follow-up with primary care physician within 1 week Elaine Del Toro PA-C Jan 05, 2018 09:19
[2018-01-05 11:09] VITALS: O2SAT 90
[2018-01-05 12:12] VITALS: BP 168/72; PULSE 90; RESP 20; TEMP 98.2; O2SAT 96
--- NOTE | 2018-01-05 12:24 | RADRPT ---
EXAM DATE/TIME: 01/04/2018 15:29 [facility] COMPARISON: No previous studies available for comparison. INDICATIONS : Midchest pain. Angina. DOSE: 30.1 mCi Tc99m Myoview at stress. 30.1 mCi Tc99m Myoview at rest. 0.4 mg Lexiscan STRESS SYMPTOMS: None. EJECTION FRACTION: > 70% MEDICAL HISTORY : Chronic obstructive pulmonary disease. Hypertension. Carcinoma, basal cell. SURGICAL HISTORY : Hysterectomy. ENCOUNTER: Initial ACUITY: 1 day PAIN SCALE: 3/10 LOCATION: Bilateral chest TECHNIQUE: The patient underwent pharmacologic stress with infusion of prescribed dose. Continuous ECG tracing was monitored during stress. Gated SPECT imaging was performed after stress and conventional SPECT i maging was performed at rest. The examination was performed on a SPECT/CT scanner, both attenuation and non-corrected datasets were reviewed. FINDINGS: DISTRIBUTION: The maximum perfused segment at stress is in the posterobasal wall. PERFUSION STUDY: The pattern of perfusion at stress is within normal limits. GATED STUDY: There is intact wall motion and thickening without hypokinetic or dyskinetic segments. CONCLUSION: Normal examination. RISK CATEGORY: Low (<1% Annual Mortality Rate) Reinaldo Powell MD on January 05, 2018 at 12:21 Board Certified Radiologist. This report was verified electronically.
--- NOTE | 2018-01-05 14:39 | HHI.DCPOC ---
Discharge Care Plan Diagnosis: (1) Chest pain (2) COPD (chronic obstructive pulmonary disease) Goals to Promote Your Health * To prevent worsening of your condition and complications * To maintain your health at the optimal level Directions to Meet Your Goals Take your medications as prescribed Follow your dietary instruction Follow activity as directed Keep your appointments as scheduled Take your immunizations and boosters as scheduled If your symptoms worsen call your PCP, if no PCP go to Urgent Care Center or Emergency Room Smoking is Dangerous to Your Health. Avoid second hand smoke Call the 24-hour hour crisis hotline for domestic abuse at Elaine Del Toro PA-C Jan 05, 2018 14:39
--- NOTE | 2018-01-05 15:06 | EKG ---
Date Performed: 01/04/2018 Time Performed: 11:28:54 PTAGE: 72 years EKG: Sinus rhythm WITH FIRST DEGREE AV BLOCK NONSPECIFIC T-WAVE ABNORMALITY PROLONGED QT INTERVAL Since previous aracelis ng, no significant change noted ABNORMAL ECG PREVIOUS TRACING : 01/04/2018 03.37.49 DOCTOR: Tash Majano Interpretating Date/Time 01/05/2018 15:06:29
[2018-01-05 18:04] VITALS: PULSE 72
--- NOTE | 2018-01-05 18:47 | ECHRPT ---
Indication: cp CONCLUSIONS The left ventricular systolic function is normal with an estimated ejection fraction in the range of 60-65%. Trace mitral valve regurgitation. There is mild tricuspid valve regurgitation. BP: / HR: Rhythm: MEASUREMENTS (Male / Female) Normal Values Technical Quality:Fair 2D ECHO LV Diastolic Diameter PLAX 3.8 cm 4.2 - 5.9 / 3.9 - 5.3 cm LV Systolic Diameter PLAX 2.7 cm IVS Diastolic Thickness 1.3 cm 0.6 - 1.0 / 0.6 - 0.9 cm LVPW Diastolic Thickness 1.1 cm 0.6 - 1.0 / 0.6 - 0.9 cm LV Relative Wall Thickness 0.6 RV Internal Dim ED PLAX 2.4 cm M-MODE Aortic Root Diameter MM 2.9 cm LA Systolic Diameter MM 3.1 cm LA Ao Ratio MM 1.1 AV Cusp Separation MM 1.6 cm DOPPLER TR Peak Velocity 302.0 cm/s TR Peak Gradient 36.5 mmHg Right Atrial Pressure 10.0 mmHg Pulmonary Artery Systolic Pressu 46.5 mmHg Right Ventricular Systolic Press 46.5 mmHg FINDINGS LEFT VENTRICLE Normal left ventricular size. The left ventricular systolic function is normal with an estimated ejection fraction in the range of 60-65%. Wall thickness is measured at the upper limits of normal. RIGHT VENTRICLE Normal right ventricular size and systolic function. LEFT ATRIUM The left atrial size is normal. RIGHT ATRIUM The right atrial size is normal. ATRIAL SEPTUM Normal atrial septal thickness. AORTA The aortic root and proximal ascending aorta are normal in size on limited imaging. MITRAL VALVE Structurally normal mitral valve. Trace mitral valve regurgitation. No mitral valve stenosis. AORTIC VALVE Trileaflet aortic valve. No aortic valve stenosis or regurgitation. TRICUSPID VALVE Structurally normal tricuspid valve. There is mild tricuspid valve regurgitation. The estimated pulmonary arterial pressure is 46.5 mmHg. PULMONARY VALVE No pulmonary valve regurgitation or stenosis. VESSELS The inferior vena cava is normal in size. PERICARDIUM No pericardial effusion. Hunter Banerjee DO (Electronically Signed) Final Date:05 January 2018 18:46
== END 2018-01-05 20:16 | disposition home or self-care (01) ==
LOC: NEPC 20:49 → NEDA 23:57 → NEDH 01-04 03:57 → NEPHCDU 01-04 13:27 → UNDODISOB 01-04 17:14
PROVIDERS: ADMIT Hospitalist; ATTEND Hospitalist
DX: R07.89 Other chest pain (principal); R06.02 Shortness of breath; R09.02 Hypoxemia; I44.0 Atrioventricular block, first degree; I45.81 Long QT syndrome; R94.31 Abnormal electrocardiogram [ECG] [EKG]; R10.9 Unspecified abdominal pain; R11.0 Nausea; I10 Essential (primary) hypertension; J44.9 Chronic obstructive pulmonary disease, unspecified; E78.5 Hyperlipidemia, unspecified; G43.909 Migraine, unspecified, not intractable, without status migrainosus; M54.9 Dorsalgia, unspecified; G89.29 Other chronic pain; Z79.899 Other long term (current) drug therapy; Z87.891 Personal history of nicotine dependence
CPT/HCPCS: 71045; 71275; 74177; 78452; 80048; 82550; 82552; 83605; 83735; 83880; 84484; 85025; 85379; 85610; 85730; 93005; 93017; 93306; 93970; 94150; 94640; 94664; 96361; 96365; 96372; 96375; 96376; 99285; A9502; G0378; J0696; J1644; J2060; J2405; J2785; J2920; J2930; J7040; J7613; Q9967